=== PATIENT | male | born 1940 | race Caucasian/White ===

== ENCOUNTER 2017-01-15 19:05 | Emergency (ER) | payer MEDICARE, OTHER ==
[2017-01-15 19:46] VITALS: O2SAT 96
[2017-01-15] MEDS ORDERED: ASPIRIN TABLET 325 MG TAB PO ONE (19:47)
--- NOTE | 2017-01-15 19:58 | CT ---
EXAM DESCRIPTION: Head CLINICAL HISTORY: acute right arm weakness COMPARISON: None Available TECHNIQUE: Contiguous axial CT images of the head were obtained. Coronal and sagittal reconstructions were created from the axial data. This exam was performed according to our departmental dose-optimization program, which includes automated exposure control, adjustment of the mA and/or kV according to patient size and/or use of iterative reconstruction technique. FINDINGS: Poorly defined foci of decreased attenuation do not exert significant mass effect on surrounding structures and may be sequela of prior insult, most likely on the basis of small vessel disease. There is no definite evidence of acute mass, mass effect, midline shift or hemorrhage. The ventricles and extra-axial CSF spaces are unremarkable. No acute abnormalities of the bones is seen. IMPRESSION: No definite acute intracranial abnormality. However if there is high suspicion of acute ischemia MRI is recommended. Electronically signed by: Andrew Machado 01/15/2017 7:57 PM [facility]
--- NOTE | 2017-01-15 20:32 | ED.PDOC ---
History of Present Illness - General Chief Complaint: Neuro Symptoms/Deficits Stated Complaint: right side weakness less than 2 hrs Time Seen by Provider: 01/15/17 19:22 Source: patient, family Exam Limitations: no limitations - History of Present Illness Initial Comments: the patient is a 76-year-old male presenting to the emergency room secondary to sudden onset weakness of his right upper extremity at 5:30 PM today. The patient started with flexion at the wrist and hand that quickly progressed to a flaccid paralysis from about the elbow down. No other symptoms. By the time the patient arrived here he had regained function at his elbow but his wrist was still very weak and his hand was essentially flaccid. Over the next 30-40 minutes strength came back across the wrist and the hand. He is still having some difficulty with dexterity of his fingers. No other neurological deficits have been found. No speech deficits. No swallowing deficits. no gait deficits. No altered mental status. Timing/Duration: 1-3 hours Severity: moderate Improving Factors: nothing Worsening Factors: nothing Associated Symptoms: denies symptoms Allergies/Adverse Reactions: Allergies NO KNOWN ALLERGY Allergy (Verified 01/15/17 19:32) Home Medications: Ambulatory Orders Avapro 300 mg PO DAILY 01/15/17 HydrALAzine HCl 25 mg PO TID 01/15/17 Hydrochlorothiazide 12.5 mg PO DAILY 01/15/17 Simvastatin 10 mg PO BEDTIME 01/15/17 Toprol 50 mg PO BID 01/15/17 Review of Systems - Review of Systems Constitutional: States: no symptoms reported EENTM: States: no symptoms reported Respiratory: States: no symptoms reported Cardiology: States: no symptoms reported Gastrointestinal/Abdominal: States: no symptoms reported Genitourinary: States: no symptoms reported Musculoskeletal: States: see HPI Skin: States: no symptoms reported Neurological: States: see HPI Endocrine: States: no symptoms reported All other Systems: No Change from Baseline Past Medical History (General) - Patient Medical History Hx Seizures: No Hx Stroke: No Hx Dementia: No Hx Asthma: No Hx of COPD: No Hx Cardiac Disorders: No Hx Congestive Heart Failure: No Hx Pacemaker: No Hx Hypertension: Yes Hx Thyroid Disease: No Hx Diabetes: No Hx Gastroesophageal Reflux: No Hx Renal Disease: No Hx Cancer: Yes - prostate cancer Hx of HIV: No Hx Hepatitis C: No Hx MRSA: No Surgical History: cholecystectomy - Vaccination History Hx Influenza Vaccination: No - Social History Hx Tobacco Use: Yes Hx Alcohol Use: No Hx Depression: No - Triage Comment ED Triage Comment: Pt states he noticed he was having some right sided weakness that started approx 2 hrs ago.He states his right arm is numb. Family Medical History - Family History Mother Family History: Unknown Physical Exam - Physical Exam General Appearance: Alert, No apparent distress Eye Exam: bilateral normal Ears, Nose, Throat: hearing grossly normal - mild hearing loss bilaterally which is chronic, normal ENT inspection Neck: full range of motion, supple Respiratory: chest non-tender, lungs clear, normal breath sounds, no respiratory distress, no accessory muscle use Cardiovascular/Chest: normal peripheral pulses, regular rate, rhythm, no edema Peripheral Pulses: radial,right: 2+, radial,left: 2+, dorsalis pedis,right: 2+, dorsalis pedis,left: 2+ Gastrointestinal/Abdominal: non tender, soft Rectal Exam: deferred Back Exam: no CVA tenderness, no vertebral tenderness Extremity: normal range of motion - passive, non-tender, no pedal edema, no calf tenderness, normal capillary refill, other - see history of present illness 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, alert, normal mood/affect, oriented x 3, other - see history of present illness Skin Exam: normal color Comments: Vital Signs - 24 hr 01/15/17 01/15/17 01/15/17 19:05 19:19 19:45 Pulse Rate [ 90 90 93 H monitor] Respiratory 18 18 Rate Blood Pressure 170/88 176/94 [Left Arm] O2 Sat by Pulse 97 96 Oximetry 01/15/17 20:09 Pulse Rate [ 86 monitor] Respiratory 18 Rate Blood Pressure 172/86 [Left Arm] O2 Sat by Pulse 96 Oximetry Progress - Progress Progress: 01/15/17 20:35 the patient is a 76-year-old male presenting to the emergency room secondary to what appears to be a stroke with right upper extremity deficits. Deficits have improved greatly since arrival. The patient is receiving aspirin. No lytic therapy at this point. The patient will be kept nothing by mouth. He is going to be transferred to [facility] for neurological evaluation. Blood pressures are currently borderline. - Results/Orders Results/Orders: Laboratory Tests 01/15/17 01/15/17 01/15/17 19:25 19:25 19:25 WBC 11.0 H RBC 5.15 Hgb 15.9 Hct 45.5 MCV 88.3 MCH 30.9 MCHC 35.0 RDW 12.9 Plt Count 221 MPV 8.7 Absolute Neuts (auto) 6.60 Absolute Lymphs (auto) 2.70 Absolute Monos (auto) 1.00 H Absolute Eos (auto) 0.70 H Absolute Basos (auto) 0.20 H Neutrophils % 59.6 Lymphocytes % 24.1 Monocytes % 8.7 Eosinophils % 6.1 H Basophils % 1.5 PT 10.3 INR 0.910 PTT (SP) 30.9 Sodium 138 Potassium 4.1 Chloride 104 Carbon Dioxide 27 Anion Gap 11.1 L BUN 28 H Creatinine 1.55 H BUN/Creatinine Ratio 18.1 Random Glucose 116 H Serum Osmolality 282.1 Calcium 9.5 Total Bilirubin 0.7 AST 24 ALT 26 Alkaline Phosphatase 50 Creatine Kinase 136 CK-MB (CK-2) 4.0 CK-MB (CK-2) % Not Reportable Troponin I < 0.02 Serum Total Protein 7.6 Albumin 4.2 Globulin 3.4 Albumin/Globulin Ratio 1.2 EKG shows normal sinus rhythm with premature aberrantly conducted complexes. No definitive acute ST segment changes concerning for ischemia. Heart rate is 88 bpm. Mild right axis deviation. head CT was read as poorly defined foci of decreased attenuation but failed to say where. Addendum to the CT scan is pending for localization. It also reported high suspicion for acute ischemia. This is without contrast. No hemorrhage. - EKG/XRAY/CT CT Ordered: Yes Departure - Departure Clinical Impression: Cerebrovascular accident Qualifiers: CVA mechanism: unspecified Qualified Code(s): I63.9 - Cerebral infarction, unspecified Disposition: Transfer to Hospital Referrals: JOHNNY RODGERS DO [Primary Care Provider] - 1-2 Weeks Home Medications: Ambulatory Orders Avapro 300 mg PO DAILY 01/15/17 HydrALAzine HCl 25 mg PO TID 01/15/17 Hydrochlorothiazide 12.5 mg PO DAILY 01/15/17 Simvastatin 10 mg PO BEDTIME 01/15/17 Toprol 50 mg PO BID 01/15/17 Transfer to Outside Facility - Transfer Information Accepting Facility: [facility] Reason for Transfer: required specialist not available - neurology
[2017-01-15 20:33] VITALS: TEMP 98.1
[2017-01-15 20:58] VITALS: BP 143/81
== END 2017-01-15 20:47 | disposition short-term general hospital (02) ==
LOC: ER 19:05
DX: I63.9 Cerebral infarction, unspecified (principal); I10 Essential (primary) hypertension; Z87.891 Personal history of nicotine dependence

== ENCOUNTER 2017-07-07 05:39 | Day surgery (SDC) | payer MEDICARE, OTHER ==
[2017-07-07] MEDS ORDERED: TROP 1%/CYCLOPEN 1%/PHENYL 2% DROPS ONE (08:40)
[2017-07-07] MEDS ORDERED: PROPARACAINE 0.5% OPHTH SOL 15 ML BTTL ONE (12:10)
[2017-07-07] MEDS ORDERED: MIDAZOLAM INJ 2 MG/2 ML VIAL ONE (12:42)
[2017-07-07] MEDS ORDERED: TOBRAMYCIN SULF 0.3 % OPHT SOL 1 DROP RIGHT_EYE ONE ×4 (13:05→14:51)
[2017-07-07] MEDS ORDERED: PROPARACAINE 0.5% OPHTH SOL 15 ML BTTL RIGHT_EYE ONE (14:35)
[2017-07-07] MEDS ORDERED: DEXAMETHASONE 0.1% OPHTH SOL 1 DROP RIGHT_EYE ONE ×3 (14:45→14:51)
[2017-07-07] MEDS ORDERED: LIDOCAINE 1% PF 2 ML AMP INJ ONE (14:45)
[2017-07-07] MEDS ORDERED: BRIMONIDINE 0.2% OPHTH DROPS RIGHT_EYE ONE ×3 (14:46→14:51)
[2017-07-07 16:10] VITALS: BP 154/88; TEMP 97.4; O2SAT 96
== END 2017-07-07 15:30 | disposition home or self-care (01) ==
LOC: AMB 05:39
PROVIDERS: ATTEND Ophthalmology
DX: H25.11 Age-related nuclear cataract, right eye (principal); I10 Essential (primary) hypertension; I25.10 Atherosclerotic heart disease of native coronary artery without angina pectoris; J44.9 Chronic obstructive pulmonary disease, unspecified; E66.9 Obesity, unspecified; Z86.73 Personal history of transient ischemic attack (TIA), and cerebral infarction without residual deficits; Z87.891 Personal history of nicotine dependence; Z79.899 Other long term (current) drug therapy
CPT/HCPCS: 00142; 66984; J2250

== ENCOUNTER 2017-07-21 06:00 | Day surgery (SDC) | payer MEDICARE, OTHER ==
[2017-07-21] MEDS ORDERED: PROPARACAINE 0.5% OPHTH SOL 15 ML BTTL ONE (10:24)
[2017-07-21] MEDS ORDERED: TROP 1%/CYCLOPEN 1%/PHENYL 2% DROPS ONE (10:24)
[2017-07-21] MEDS ORDERED: MIDAZOLAM INJ 2 MG/2 ML VIAL ONE (12:21)
[2017-07-21] MEDS ORDERED: PROPARACAINE 0.5% OPHTH SOL 15 ML BTTL LEFT_EYE ONE (14:53)
[2017-07-21] MEDS ORDERED: LIDOCAINE 1% PF 2 ML AMP INJ ONE (15:04)
[2017-07-21] MEDS ORDERED: DEXAMETHASONE 0.1% OPHTH SOL 1 DROP LEFT_EYE ONE ×3 (15:04→15:13)
[2017-07-21] MEDS ORDERED: TOBRAMYCIN SULF 0.3 % OPHT SOL 1 DROP LEFT_EYE ONE ×3 (15:05→15:13)
[2017-07-21] MEDS ORDERED: BRIMONIDINE 0.2% OPHTH DROPS LEFT_EYE ONE ×3 (15:05→15:13)
== END 2017-07-21 15:50 | disposition home or self-care (01) ==
LOC: AMB 06:00
PROVIDERS: ATTEND Ophthalmology
DX: H25.12 Age-related nuclear cataract, left eye (principal); I10 Essential (primary) hypertension; J44.9 Chronic obstructive pulmonary disease, unspecified; Z87.891 Personal history of nicotine dependence; Z85.46 Personal history of malignant neoplasm of prostate; Z86.73 Personal history of transient ischemic attack (TIA), and cerebral infarction without residual deficits; Z79.899 Other long term (current) drug therapy
CPT/HCPCS: 00142; 66984; J2250